=== PATIENT | female | born 2000 | race Native Hawaiian/Other Pacific Islander ===

== ENCOUNTER 2022-11-01 10:41 | Emergency (ER) | payer BC ==
[~2022-11-01] VITALS: Ht 157.5 cm; Wt 61.2 kg
[2022-11-01 10:45] VITALS: BP 114/70; TEMP 98.7
== END 2022-11-01 11:39 | disposition home or self-care (01) ==
LOC: ED 10:41
DX: S91.331A Puncture wound without foreign body, right foot, initial encounter (principal); S81.811A Laceration without foreign body, right lower leg, initial encounter; X58.XXXA Exposure to other specified factors, initial encounter
CPT/HCPCS: 90471; 90715; 96372; 99283

== ENCOUNTER 2022-11-11 11:57 | Outpatient (CLI) | payer BC | END 2022-11-11 21:51 | disposition home or self-care (01) | LOC: US 11:57 | PROVIDERS: ATTEND Nurse Practitioner | DX: M79.604 Pain in right leg (principal); R22.41 Localized swelling, mass and lump, right lower limb ==